=== PATIENT | male | born 1960 | race Caucasian/White ===

== ENCOUNTER 2020-05-31 08:11 | Inpatient (IN) | payer MEDICAID ==
[2020-05-30 11:57] LABS: BASOPHILS % (AUTO) 1 % (0-1); EOSINOPHILS % (AUTO) 13 % (1-7); LYMPHOCYTES % (AUTO) 24 % (22-44); MEAN CORPUSCULAR HEMOGLOBIN 28.5 pg (27.5-34.5); MEAN CORPUSCULAR HGB CONC 33.3 g/dL (33.2-36.2); MEAN PLATELET VOLUME 6.7 fL (7.4-10.4); MONOCYTES % (AUTO) 8 % (2-9); NEUTROPHILS % (AUTO) 54 % (42-75); PLATELET COUNT 460 x10^3/uL (130-400); RED BLOOD COUNT 4.49 x10^6/uL (4.38-5.82); RED CELL DISTRIBUTION WIDTH 15.1 % (9.4-14.8)
[2020-05-30 12:10] LABS: CHLORIDE 102 mmol/L (98-107)
[2020-05-30 12:18] LABS: MD SCAN
[2020-05-30 12:19] LABS: ALANINE AMINOTRANSFERASE 30 U/L (12-78); ALBUMIN 3.3 g/dL (3.4-5.0); ALKALINE PHOSPHATASE 69 U/L (45-117); ANION GAP 7 mmol/L (5-15); BILIRUBIN,TOTAL 0.4 mg/dL (0.2-1.0); CALCIUM 9.3 mg/dL (8.5-10.1); CREATININE 0.71 mg/dL (0.7-1.3); TOTAL PROTEIN 7.5 g/dL (6.4-8.2)
[~2020-05-31] VITALS: Ht 177.8 cm; Wt 91.1 kg
[~2020-05-31 08:11] MED LIST: Will bring list DOS
[2020-05-31] MEDS ORDERED: NORT10CA PO (09:09)
[2020-05-31] MEDS ORDERED: INSU100V8 SQ (09:09)
[2020-05-31] MEDS ORDERED: ESOM20CA PO (09:09)
[2020-05-31] MEDS ORDERED: FLUO10TA PO (09:09)
[2020-05-31] MEDS ORDERED: OXYC1TAB14 PO (09:09)
[2020-05-31] MEDS ORDERED: PRAV10TA2 PO (09:09)
[2020-05-31] MEDS ORDERED: GABA-827 PO (09:09)
[2020-05-31] MEDS ORDERED: INSU100I17 SC (09:09)
[2020-05-31] MEDS ORDERED: MIDAZOLAM 1 MG/ML, 2ML ONE (09:23)
[2020-05-31] MEDS ORDERED: FENTANYL PF 250 MCG/5ML ONE (09:24)
[2020-05-31] MEDS ORDERED: PROMETHAZINE 25 MG/ML, 1ML IVPush PRN (09:30)
[2020-05-31] MEDS ORDERED: hydrALAzine 20 MG/ML, 1ML IV PRN (09:30)
[2020-05-31] MEDS ORDERED: CHLORHEXIDINE 15 ML UDC MM ONE (09:30)
[2020-05-31] MEDS ORDERED: LIDOCAINE-MPF 1%, 2ML INFIL ONE (09:30)
[2020-05-31] MEDS ORDERED: MEPERIDINE/PF 25MG/0.5ML IVPush PRN (09:30)
[2020-05-31] MEDS ORDERED: ACETAMINOPHEN 325 MG TABLET PO PRN ×2 (09:30→14:00)
[2020-05-31] MEDS ORDERED: HYDROmorphone 1 MG/ML, 1ML INJ IVPush PRN (09:30)
[2020-05-31] MEDS ORDERED: ONDANSETRON 2MG/ML, 2ML IVPush PRN (09:30)
[2020-05-31] MEDS ORDERED: OXYcodone 5 MG/5 ML ORAL.SOL UDC PO PRN (09:30)
[2020-05-31] MEDS ORDERED: LACTATED RINGERS 1,000 ML IV SCH (09:30)
[2020-05-31] MEDS ORDERED: LABETALOL 5MG/ML, 20ML IV PRN (09:30)
[2020-05-31] MEDS ORDERED: FENTANYL PF 100 MCG/2ML IV PRN (09:30)
[2020-05-31] MEDS ORDERED: EPINEPHRINE 1 MG/ML, 1ML ONE (09:51)
[2020-05-31] MEDS ORDERED: BUPIVACAINE/PF 0.5% ONE (09:51)
[2020-05-31] MEDS ORDERED: DEXAMETHASONE 4 MG/ML, 5ML ONE (10:06)
[2020-05-31] MEDS ORDERED: CEFOTETAN 2 GM ONE (10:09)
[2020-05-31] MEDS ORDERED: PROPOFOL 10 MG/ML, 20ML ONE (10:09)
[2020-05-31] MEDS ORDERED: ROCURONIUM 10MG/ML,5ML ONE (10:09)
[2020-05-31] MEDS ORDERED: EPHEDRINE 50 MG/ML, 1ML ONE (10:16)
[2020-05-31] MEDS ORDERED: PHENYLEPHRINE 10 MG/ML ONE (10:20)
[2020-05-31] MEDS ORDERED: KETOROLAC 30 MG/1 ML ONE (10:41)
[2020-05-31] MEDS ORDERED: NEOSTIGMINE 1 MG/ML, 10ML ONE (10:46)
[2020-05-31] MEDS ORDERED: GLYCOPYRROLATE 0.2MG/1ML, 5ML ONE (10:46)
[2020-05-31] MEDS ORDERED: ONDANSETRON 2MG/ML, 2ML ONE (11:06)
[2020-05-31] MEDS ORDERED: FENTANYL PF 100 MCG/2ML ONE (11:41)
[2020-05-31] MEDS ORDERED: OXYcodone 5 MG/5 ML ORAL.SOL UDC ONE (11:41)
[2020-05-31] MEDS ORDERED: ACETAMINOPHEN 650 MG/20.3 ML UDC ONE (11:42)
[2020-05-31 13:00] VITALS: BP 139/79
[2020-05-31] MEDS ORDERED: LORazepam 1MG TABLET PO PRN (14:00)
[2020-05-31] MEDS ORDERED: ONDANSETRON 2MG/ML, 2ML IV PRN (14:00)
[2020-05-31] MEDS ORDERED: morphine SULFATE 10 MG/ML, 1ML IV PRN (14:00)
[2020-05-31] MEDS ORDERED: DIPHENHYDRAMINE 25 MG CAPSULE PO PRN (14:00)
[2020-05-31] MEDS ORDERED: LORazepam 2 MG/ML, 1ML IV PRN (14:00)
[2020-05-31] MEDS ORDERED: D5%-LACTATED RINGERS 1,000 ML IV SCH (14:00)
[2020-05-31] MEDS ORDERED: ACETAMINOPHEN 650 MG SUPP PR PRN (14:00)
[2020-05-31] MEDS ORDERED: DIPHENHYDRAMINE 50 MG/ML, 1ML IV PRN (14:00)
[2020-05-31] MEDS: NOVOLOG MIX MC SCH ×2 (14:30→22:30)
[2020-05-31] MEDS: GABAPENTIN 400 MG CAPSULE PO SCH ×2 (17:58→20:56)
[2020-05-31] MEDS: INSULIN LISPRO 100 UNITS/ML, PEN MEDIUM DOSE SS SQ-INSULIN SCH ×2 (17:59→20:55)
[2020-05-31] MEDS: OXYcodone/APAP 5/325MG TABLET PO PRN (17:59)
[2020-05-31] MEDS: KETOROLAC 30 MG/1 ML IV PRN (17:59)
[2020-05-31 19:09] VITALS: BP 130/70
[2020-05-31] MEDS: PRAVASTATIN 20 MG TABLET PO SCH (20:53)
[2020-05-31] MEDS: NORTRIPTYLINE 10 MG CAPSULE PO SCH (20:53)
[2020-05-31] MEDS: INSULIN GLARGINE 100 UNITS/ML, PEN SQ-INSULIN SCH (20:54)
[2020-05-31] MEDS: SODIUM CHLORIDE FLUSH 10ML SYR IVF SCH (20:55)
[2020-05-31 21:07] VITALS: BP 121/76
[2020-06-01 02:40] VITALS: BP 148/96
[2020-06-01] MEDS: OXYcodone/APAP 5/325MG TABLET PO PRN ×5 (03:21→21:14)
[2020-06-01 05:06] LABS: BASOPHILS % (AUTO) 1 % (0-1); EOSINOPHILS % (AUTO) 1 % (1-7); LYMPHOCYTES % (AUTO) 16 % (22-44); MEAN CORPUSCULAR HEMOGLOBIN 28.9 pg (27.5-34.5); MEAN CORPUSCULAR HGB CONC 33.5 g/dL (33.2-36.2); MEAN PLATELET VOLUME 6.8 fL (7.4-10.4); MONOCYTES % (AUTO) 8 % (2-9); NEUTROPHILS % (AUTO) 74 % (42-75); PLATELET COUNT 444 x10^3/uL (130-400); RED BLOOD COUNT 4.42 x10^6/uL (4.38-5.82); RED CELL DISTRIBUTION WIDTH 14.8 % (9.4-14.8)
[2020-06-01 05:14] LABS: ANION GAP 6 mmol/L (5-15); CALCIUM 8.8 mg/dL (8.5-10.1); CHLORIDE 103 mmol/L (98-107); CREATININE 0.66 mg/dL (0.7-1.3)
[2020-06-01 05:52] LABS: MD SCAN
[2020-06-01] MEDS: PANTOPRAZOLE 40MG TABLET PO SCH (06:13)
[2020-06-01] MEDS: GABAPENTIN 400 MG CAPSULE PO SCH ×4 (06:14→21:04)
[2020-06-01] MEDS: KETOROLAC 30 MG/1 ML IV PRN (06:23)
[2020-06-01] MEDS: NOVOLOG MIX MC SCH ×4 (06:30→23:52)
[2020-06-01] MEDS: INSULIN LISPRO 100 UNITS/ML, PEN MEDIUM DOSE SS SQ-INSULIN SCH ×4 (07:00→21:13)
[2020-06-01] MEDS: ENOXAPARIN 40 MG/0.4 ML SQ SCH (08:06)
[2020-06-01 08:10] VITALS: BP 136/84
[2020-06-01] MEDS: SODIUM CHLORIDE FLUSH 10ML SYR IVF SCH ×2 (08:13→21:00)
[2020-06-01 14:20] VITALS: BP 116/75
[2020-06-01 20:53] VITALS: BP 123/80
[2020-06-01] MEDS: PRAVASTATIN 20 MG TABLET PO SCH (21:04)
[2020-06-01] MEDS: NORTRIPTYLINE 10 MG CAPSULE PO SCH (21:04)
[2020-06-01] MEDS: FLUOXETINE HCL 20 MG CAPSULE PO SCH (21:04)
[2020-06-01] MEDS: INSULIN GLARGINE 100 UNITS/ML, PEN SQ-INSULIN SCH (21:14)
[2020-06-02] MEDS: PANTOPRAZOLE 40MG TABLET PO SCH (06:20)
[2020-06-02] MEDS: GABAPENTIN 400 MG CAPSULE PO SCH ×4 (06:20→21:00)
[2020-06-02] MEDS: INSULIN LISPRO 100 UNITS/ML, PEN MEDIUM DOSE SS SQ-INSULIN SCH ×4 (06:21→21:26)
[2020-06-02 08:00] VITALS: BP 119/87
[2020-06-02] MEDS: FLUOXETINE HCL 20 MG CAPSULE PO SCH (08:00)
[2020-06-02] MEDS: SODIUM CHLORIDE FLUSH 10ML SYR IVF SCH ×2 (08:01→21:01)
[2020-06-02] MEDS: OXYcodone/APAP 5/325MG TABLET PO PRN ×3 (08:01→21:00)
[2020-06-02] MEDS: ENOXAPARIN 40 MG/0.4 ML SQ SCH (08:02)
[2020-06-02 12:49] VITALS: BP 124/80
[2020-06-02 19:55] VITALS: BP 112/72
[2020-06-02] MEDS: NORTRIPTYLINE 10 MG CAPSULE PO SCH (21:00)
[2020-06-02] MEDS: PRAVASTATIN 20 MG TABLET PO SCH (21:01)
[2020-06-02] MEDS: INSULIN GLARGINE 100 UNITS/ML, PEN SQ-INSULIN SCH (21:25)
[2020-06-03 01:10] VITALS: BP 150/88
[2020-06-03] MEDS: OXYcodone/APAP 5/325MG TABLET PO PRN ×2 (01:11→05:41)
[2020-06-03] MEDS: PANTOPRAZOLE 40MG TABLET PO SCH (05:41)
[2020-06-03] MEDS: GABAPENTIN 400 MG CAPSULE PO SCH (05:41)
[2020-06-03] MEDS ORDERED: OXYC-302 PO (06:47)
[2020-06-03 06:56] VITALS: BP 121/81
[2020-06-03] MEDS: INSULIN LISPRO 100 UNITS/ML, PEN MEDIUM DOSE SS SQ-INSULIN SCH (07:00)
[2020-06-03] MEDS: SODIUM CHLORIDE FLUSH 10ML SYR IVF SCH (08:17)
[2020-06-03] MEDS: FLUOXETINE HCL 20 MG CAPSULE PO SCH (08:17)
[2020-06-03] MEDS: ENOXAPARIN 40 MG/0.4 ML SQ SCH (08:18)
[2020-06-03 10:45] VITALS: BP 117/75
== END 2020-06-03 11:15 | disposition home or self-care (01) | DRG 231 ==
LOC: OUT 08:11 → 4NE 13:06 → OUT 14:53 → DCLOUNGE 06-03 11:08
PROVIDERS: ADMIT Colon & Rectal Surgery; ATTEND Colon & Rectal Surgery
PROC: 0D1N4Z4 Bypass Sigmoid Colon to Cutaneous, Percutaneous Endoscopic Approach (ICD-10-PCS; principal; 2020-05-31 10:30)
PROC: 0DJD8ZZ Inspection of Lower Intestinal Tract, Via Natural or Artificial Opening Endoscopic (ICD-10-PCS; 2020-05-31 10:30)
DX: C20 Malignant neoplasm of rectum (principal); K56.609 Unspecified intestinal obstruction, unspecified as to partial versus complete obstruction; Z79.899 Other long term (current) drug therapy
CPT/HCPCS: J3490; S0020; 36415; 80048; 80053; 82040; 82962; 83735; 85025; 86850; 86900; 93005; G0378; J0171; J1100; J1650; J1885; J2250; J2405; J2704; J2710; J3010; J1815; J2370; J7120; U0003